=== PATIENT | female | born 1970 | race Caucasian/White ===

== ENCOUNTER 2018-08-14 07:22 | Emergency (ER) | payer MEDICAID ==
[2018-08-14] MEDS: KETOROLAC 30 MG INJ IM (08:04)
== END 2018-08-14 08:07 | disposition home or self-care (01) ==
LOC: FTE 07:22
DX: M62.838 Other muscle spasm (principal); I10 Essential (primary) hypertension; E11.9 Type 2 diabetes mellitus without complications
CPT/HCPCS: 96372; 99284-25; J1885